=== PATIENT | male | born 1955 | race Caucasian/White ===

== ENCOUNTER → 2019-01-10 14:46 | Outpatient (CLI) | payer BC, SELFPAY ==
--- NOTE | 2019-01-10 14:48 | DI.RAD.S_ITS ---
PROCEDURE: XR KNEE RT 4V INDICATIONS: right knee pain TECHNIQUE: 3 views of the knee were acquired. COMPARISON: None. FINDINGS: Bones: No fractures or dislocations. No suspicious bony lesions. There is moderate to severe patellofemoral joint degeneration and mild femorotibial joint degeneration. Soft tissues: Small knee joint effusion. No suspicious soft tissue calcifications. IMPRESSION: 1. Degenerative joint disease. 2. Small knee joint effusion. Dictated by: Kelsey Ramsay M.D. on 01/10/2019 at 15:58 Approved by: Kelsey Ramsay M.D. on 01/10/2019 at 16:00
== END ==
PROVIDERS: Visit Provider Physical Medicine & Rehabilitation
DX: M25.561 Pain in right knee (principal); M17.11 Unilateral primary osteoarthritis, right knee; M25.461 Effusion, right knee
CPT/HCPCS: 73564; 99213